=== PATIENT | male | born 2000 | race Hispanic/Latino ===

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

== ENCOUNTER 2022-01-21 13:20 | Emergency (ER) | payer OTHER | END 2022-01-21 14:00 | LOC: ERS 13:20 | DX: Z02.89 Encounter for other administrative examinations (principal); F17.290 Nicotine dependence, other tobacco product, uncomplicated | CPT/HCPCS: 99282 ==